=== PATIENT | male | born 1955 | race Caucasian/White ===

== ENCOUNTER 2021-07-02 15:12 | Emergency (ER) | payer BC, OTHER ==
[~2021-07-02] VITALS: Ht 182.9 cm; Wt 85.4 kg
[2021-07-02 15:58] LABS: BASOPHILS % (AUTO) 1 % (0-1); EOSINOPHILS % (AUTO) 1 % (1-7); LYMPHOCYTES % (AUTO) 13 % (22-44); MEAN CORPUSCULAR HEMOGLOBIN 32.8 pg (27.5-34.5); MEAN CORPUSCULAR HGB CONC 34.9 g/dL (33.2-36.2); MONOCYTES % (AUTO) 13 % (2-9); NEUTROPHILS % (AUTO) 73 % (42-75); PLATELET COUNT 199 x10^3/uL (130-400); RED BLOOD COUNT 4.62 x10^6/uL (4.38-5.82); RED CELL DISTRIBUTION WIDTH 12.5 % (9.4-14.8)
[2021-07-02] MEDS ORDERED: SODIUM CHLORIDE FLUSH 10ML SYR IVF ONE (16:00)
[2021-07-02 16:01] LABS: MICROSCOPIC NOT IND
[2021-07-02 16:07] LABS: ALANINE AMINOTRANSFERASE 32 U/L (12-78); ALBUMIN 3.7 g/dL (3.4-5.0); ANION GAP 5 mmol/L (5-15); CHLORIDE 105 mmol/L (98-107); CREATININE 0.95 mg/dL (0.7-1.3)
[2021-07-02 16:09] LABS: ALKALINE PHOSPHATASE 97 U/L (45-117); BILIRUBIN,TOTAL 0.7 mg/dL (0.2-1.0); TOTAL PROTEIN 8.1 g/dL (6.4-8.2)
--- NOTE | 2021-07-02 18:30 | NUR ---
PIV PLACED. CT NOTIFIED OF PIV PLACEMENT.
--- NOTE | 2021-07-02 18:57 | NUR ---
REPORT GIVEN TO SEVERINO PEACOCK. TRANSFER OF CARE.
--- NOTE | 2021-07-02 19:13 | NUR ---
PROVIDER AT BEDSIDE. PT AMBULATED TO RESTROOM AND BACK. PT TOLERATED WELL. NADN. FUENTES.
[2021-07-02] MEDS ORDERED: CIPROFLOXACIN/PMX 400MG/200ML 200 ML IVPB ONE (19:30)
[2021-07-02] MEDS ORDERED: METRONIDAZOLE PMX 500MG/100ML 100 ML IV ONE (19:30)
[2021-07-02] MEDS ORDERED: metroNIDAZOLE 500 MG TABLET ONE (19:43)
[2021-07-02] MEDS ORDERED: CIPROFLOXACIN 500 MG TABLET ONE (19:44)
[2021-07-02 19:48] VITALS: BP 135/68
[2021-07-02] MEDS ORDERED: metroNIDAZOLE 500 MG TABLET PO ONE (20:00)
[2021-07-02] MEDS ORDERED: CIPROFLOXACIN 500 MG TABLET PO ONE (20:00)
[2021-07-02] MEDS ORDERED: OMNIPAQUE 350 MG/ML, 100ML BOTTLE ONE (23:54)
== END 2021-07-02 19:50 | disposition home or self-care (01) ==
LOC: ED 19:00
DX: K57.32 Diverticulitis of large intestine without perforation or abscess without bleeding (principal)
CPT/HCPCS: 36415; 74177; 80053; 81003; 85025; 99285; Q9967